=== PATIENT | female | born 1930 | race Caucasian/White ===

== ENCOUNTER → 2017-03-02 | Outpatient (CLI) | payer MEDICARE ==
[~2017-03-02] MED LIST: COZAAR 50MG50 MG/TAB PO; DHA PO; DUO-KAPS1 CAP PO; FIBER GUMMIES1 EACH PO; FLAXSEED OIL1000 M1 PO; PROVENTIL0.09 MG/A1 IH; TYLENOL 325MG325 MG PO; ULTRAM50 M1 PO; VENTOLIN0.09 MG IH; XALATAN 2.5 ML2.5 ML OU; XARELTO10 MG PO; XARELTO15 MG PO; XARELTO20 MG PO
[2017-03-02 10:01] VITALS: BP 126/72
== END ==
LOC: AMSURD 09:50
DX: Z02.89 Encounter for other administrative examinations (principal)

== ENCOUNTER → 2017-03-05 | Outpatient (CLI) | payer MEDICARE ==
[2015-05-22 06:25] VITALS: BP 158/64
== END ==
LOC: RAD 14:10
DX: I87.1 Compression of vein (principal); I35.9 Nonrheumatic aortic valve disorder, unspecified; I10 Essential (primary) hypertension; Z86.711 Personal history of pulmonary embolism; I35.8 Other nonrheumatic aortic valve disorders

== ENCOUNTER 2017-12-31 17:08 | Emergency (ER) | payer MEDICARE ==
[~2017-12-31] VITALS: Ht 162.6 cm; Wt 90.9 kg
[2017-12-31 19:19] VITALS: BP 179/89
== END 2017-12-31 19:19 | disposition home or self-care (01) ==
LOC: ED 17:08
DX: R04.0 Epistaxis (principal); Z79.01 Long term (current) use of anticoagulants; Z86.711 Personal history of pulmonary embolism; Z86.718 Personal history of other venous thrombosis and embolism; Z79.899 Other long term (current) drug therapy

== ENCOUNTER → 2018-09-08 | Outpatient (CLI) | payer MEDICARE | LOC: RAD 17:37 | DX: I35.9 Nonrheumatic aortic valve disorder, unspecified (principal) ==

== ENCOUNTER → 2019-05-24 | Outpatient (CLI) | payer MEDICARE | LOC: RAD 08:15 | DX: I67.82 Cerebral ischemia (principal); G31.9 Degenerative disease of nervous system, unspecified | CPT/HCPCS: A9585 ==